=== PATIENT | male | born 1945 | race Caucasian/White ===

== ENCOUNTER 2018-07-14 20:16 | Inpatient (IN) | payer MEDICAID, MEDICARE ==
[~2018-07-14] VITALS: Ht 184.2 cm; Wt 103.4 kg
--- NOTE | 2018-07-14 20:59 | ERD ---
ER Documentation Chief Complaint Chief Complaint BIB [id number],from office,syncopal episode,called in w/ ST elevation on EKG HPI 73-year-old male history of diabetes and ischemic cardiomyopathy with EF of 20- 25% status post AICD presents to the ED via rescue ambulance after syncopal episode. Patient reports feeling unwell and lightheaded when leaving work with mild shortness of breath but no chest pain or palpitations. He was found on the ground after an apparent syncopal episode. Patient is somewhat confused and does not have any recollection of the events. Denies abdominal pain, nausea vomiting. No headache, visual changes, focal weakness or numbness. Denies leg pain or swelling. No URI symptoms, cough, fevers or chills. Prehospital Accu- Chek was 120 mg/dL. Prehospital EKG revealed paced rhythm with occasional PVCs. ROS All systems reviewed and are negative except as per history of present illness. Medications Home Meds Active Scripts Clotrimazole* (Lotrimin*) 1%-30 Gm Cream..g., 1 APPLIC TOP BID for 14 Days, #1 TUB 1 Refill Prov:THU CAMARA 07/15/18 Reported Medications Clopidogrel Bisulfate (Clopidogrel) 75 Mg Tablet, 75 MG PO DAILY for 90 Days, #90 07/15/18 Ergocalciferol (Vitamin D2) (VITAMIN D2) 50,000 Unit Capsule, 42955 UNIT PO QSAT 07/15/18 Rosuvastatin Calcium (Rosuvastatin Calcium) 20 Mg Tablet, 20 MG PO DAILY take 1 tablet daily 07/15/18 Valsartan (Valsartan) 80 Mg Tablet, 80 MG PO DAILY for 90 Days, #90 07/15/18 Fenofibrate, Micronized* (Fenofibrate*) 160 Mg Tablet, 160 MG PO DAILY for 90 Days, #90 07/15/18 Glimepiride* (Glimepiride*) 4 Mg Tablet, 4 MG PO DAILY 07/15/18 Carvedilol* (Carvedilol*) 25 Mg Tablet, 25 MG PO BID for 90 Days, #180 07/15/18 Allergies Allergies: Coded Allergies: No Known Allergy (Unverified , 07/14/18) PMhx/Soc No no stroke or cancer. No sudden cardiac . History of Surgery: Yes (Psoas muscle, AICD) Anesthesia Reaction: No Hx Neurological Disorder: No Hx Respiratory Disorders: No Hx Cardiac Disorders: Yes (Ischemic cardiomyopathy) Hx Psychiatric Problems: No Hx Miscellaneous Medical Probl: Yes (Diabetes, hyperlipidemia) Hx Alcohol Use: No Hx Substance Use: No Hx Tobacco Use: No FmHx No sudden cardiac or stroke Physical Exam Vitals Temperature: 99.7. Pulse: 89. Respirations: 18. Blood pressure 129/80. O2 saturation 97% on room air. Physical Exam Const: Alert, confused but in no acute distress. Head: Atraumatic Eyes: Normal Conjunctiva. Pupils equal reactive to light, extraocular movements are intact. No nystagmus. ENT: Normal External Ears, Nose and Mouth. Negative norman sign. No hemotympanum. Neck: Full range of motion. No midline bony tenderness or paraspinal muscle spasm. No meningismus. Resp: Breath sounds are equal and clear to auscultation bilaterally Cardio: Regular rate and rhythm, no murmurs Chest Wall: Cardiac rhythm device left upper chest wall. Nontender. Abd: Soft, non tender, non distended. Normal bowel sounds Skin: No petechiae or rashes Back: No midline or flank tenderness Ext: No cyanosis, or edema Neur: Awake and alert. Oriented to person but mildly confused. Has no recollection of the events and cannot remember his 's phone number. Cranial nerves II through XII are grossly intact. No pronator drift. Motor and sensory equal bilaterally. Plantar reflexes are downgoing. Psych: Mildly anxious but not depressed. Results 24 hrs Laboratory Tests Test 07/14/18 20:39 07/14/18 21:19 07/14/18 21:20 07/14/18 21:53 White Blood Count 5.9 10^3/ul Red Blood Count 5.00 10^6/ul Hemoglobin 14.5 g/dl Hematocrit 43.6 % Mean Corpuscular 87.2 fl Volume Mean Corpuscular 29.0 pg Hemoglobin Mean Corpuscular 33.3 g/dl Hemoglobin Concent Red Cell 14.6 % Distribution Width Platelet Count 218 10^3/UL Mean Platelet 9.5 fl Volume Immature 0.700 % Granulocytes % Neutrophils % 68.1 % Lymphocytes % 15.0 % Monocytes % 13.6 % Eosinophils % 1.7 % Basophils % 0.9 % Nucleated Red Blood 0.0 /100WBC Cells % Immature 0.040 10^3/ul Granulocytes # Neutrophils # 4.0 10^3/ul Lymphocytes # 0.9 10^3/ul Monocytes # 0.8 10^3/ul Eosinophils # 0.1 10^3/ul Basophils # 0.1 10^3/ul Nucleated Red Blood 0.0 10^3/ul Cells # Sodium Level 134 mmol/L Potassium Level 4.5 mmol/L Chloride Level 103 mmol/L Carbon Dioxide 19 mmol/L Level Anion Gap 12 Blood Urea Nitrogen 28 mg/dl Creatinine 1.02 mg/dl Est Glomerular mL/min Filtrat Rate mL/min Glucose Level 101 mg/dl Calcium Level 9.3 mg/dl Total Bilirubin 0.4 mg/dl Direct Bilirubin 0.00 mg/dl Indirect Bilirubin 0.4 mg/dl Aspartate Amino 34 IU/L Transf (AST/SGOT) Alanine 16 IU/L Aminotransferase (A LT/SGPT) Alkaline 71 IU/L Phosphatase Troponin I < 0.012 ng/ml Total Protein 7.4 g/dl Albumin 4.0 g/dl Globulin 3.40 g/dl Albumin/Globulin 1.17 Ratio Prothrombin Time 13.3 Sec Prothrombin Time 1.0 Ratio INR International 1.00 Normalized Ratio Activated 27.9 Sec Partial Thromboplas t Time D-Dimer 761.62 ng/ml D-Dimer Comment Magnesium Level 1.8 mg/dl Bedside Glucose 91 mg/dL Procedures/MDM DOCUMENTS REVIEWED: ED nurse, no prior records LAB INTERPRETATION: CBC: No anemia, leukocytosis or thrombocytopenia. Ch emistry: Mild hyponatremia and elevated BUN with normal creatinine. No electrolyte abnormalities or hypoglycemia. Troponin is negative. EKG: Time: 2018. Paced rhythm. Ventricular rate 90. Occasional PVCs. No acute ST segment elevation or depression. No Sgarbossa criteria for ischemia. My Interpretation IMAGING: Chest AP portable. The cardiac silhouette is normal. The costophrenic angles are clear. No effusion or infiltrates. Cardiac rhythm device with wires intact. No mediastinal widening. My interpretation. PROCEDURE: CT Brain without contrast. CLINICAL INDICATION: Syncope TECHNIQUE: A CT of the brain was performed on a multidetector CT scanner utilizing axial imaging from the skull base through the vertex without IV contrast. Multiplanar reformatted images were made. Images were reviewed on a PACS workstation. The CTDIvol is 39 mGy and the DLP is 634 mGycm. DICOM images are available. One or more of the following dose reduction techniques were utilized: 1.) Automated exposure control 2.) Adjustment of the mA +/- kV according to patient's size 3.) Use of iterative reconstruction technique. COMPARISON: None FINDINGS: There is moderate to severe diffuse cerebral volume loss with sulcal and ventricular dilatation. No discrete extra-axial fluid collection or masses present. Ventricles are in the midline and of normal configuration. There is periventricular and subcortical white matter disease in both cerebral hemispheres. No associated mass effect is present. There is preservation of normal [place]-white differentiation. Noted is opacification of the left frontal sinus and left ethmoid air cells with fluid and mucoperiosteal thickening in the left maxillary sinus. There is fluid in the right mastoid air cells. IMPRESSION: Atrophy. White matter disease compatible with chronic small vessel ischemia. No intracranial hemorrhage, mass or evidence of acute transcortical infarct. Sinusitis as above. .Iván Tidwell MD, MD Date Time Electronically viewed and signed by .Iván Tidwell MD, MD on 07/14/2018 21:04 MEDICAL DECISION MAKIN-year-old male history of diabetes and ischemic cardiomyopathy with EF of 20-25% status post AICD presents to the ED via rescue ambulance after syncopal episode. No chest pain, ischemic EKG changes, elevated troponin or signs of acute coronary syndrome. The patient does not recall receiving a shock from his AICD a dysrhythmia is not ruled out. Possible malfunction of cardiac rhythm device which now appears to be functioning normally and interrogation is pending. No focal neurologic deficit, signs of CVA or TIA. No obvious head injury but patient is on clopidogrel and a CT of the brain is performed to evaluate for subdural/epidural hematoma, intracranial hemorrhage, mass and ischemia is remarkable for moderately severe volume loss. Mild hyponatremia and elevated BUN to creatinine ratio consistent with dehydration but no electrolyte abnormalities or hypoglycemia. All of the age- adjusted d-dimer is mildly elevated patient is at low risk for pulmonary embolism/DVT and decision regarding CT pulmonary angiogram will be deferred to the admitting physician. Vasovagal syncope is also considered. Patient status post syncopal episode with multiple risk factors for serious outcome and ongoing mild confusion will require admission for further evaluation and management. CALLS/CONSULTS: Time: 22:30, Dr. Ramires. PMD. [phone]. Recommends admission. CALLS/CONSULTS: Time: 22:40, [facility]. Tech to interrogate AICD PATIENT CARE TRANSITIONED: Time: 23:20, Dr. Ochoa. Counseled patient regarding diagnosis, diagnostic results and plan for admission. Departure Diagnosis: Primary Impression: Syncope Syncope type: unspecified Qualified Codes: R55 - Syncope and collapse Additional Impressions: Ischemic cardiomyopathy AICD (automatic cardioverter/defibrillator) present Diabetes mellitus Diabetes mellitus type: type 2 Diabetes mellitus professional model insulin use: unspecified professional model insulin use status Diabetes mellitus complication status: with unspecified complications Qualified Codes: E11.8 - Type 2 diabetes mellitus with unspecified complications Essential hypertension Hyperlipidemia Hyperlipidemia type: unspecified Qualified Codes: E78.5 - Hyperlipidemia, unspecified Condition: Serious EDWIN WHITLEY MD Jul 14, 2018 20:59
[2018-07-14] MEDS ORDERED: ACETAMINOPHEN 325 MG TAB PO PRN (23:30)
[2018-07-14] MEDS ORDERED: ONDANSETRON 4 MG INJ IV PRN (23:30)
[2018-07-15] VITALS (10 sets, daily range): BP systolic 134–160; BP diastolic 56–77; PULSE 69–81; RESP 16–19; Ht 184.2 cm; Wt 103.4 kg
[2018-07-15] MEDS ORDERED: GLIM4TAB PO (00:01)
[2018-07-15] MEDS ORDERED: FENO160T13 PO (00:01)
[2018-07-15] MEDS ORDERED: VALS80TA30 PO (00:01)
[2018-07-15] MEDS ORDERED: CARV25TA79 PO (00:01)
[2018-07-15] MEDS ORDERED: ROSU20TA30 PO (00:20)
[2018-07-15] MEDS ORDERED: ERGO500013 PO (00:20)
[2018-07-15] MEDS ORDERED: CLOP75TA28 PO (00:20)
[2018-07-15] MEDS ORDERED: NITROGLYCERIN (SL) 0.4 MG TAB SL PRN (02:30)
[2018-07-15] MEDS ORDERED: ALBUTEROL/IPRATROPIUM (NEB) 3 ML AMP HHN PRN (02:30)
[2018-07-15] MEDS ORDERED: ONDANSETRON 4 MG INJ IV PRN (02:30)
[2018-07-15] MEDS ORDERED: NACL 0.9% 3 ML SYG IV SCH (02:30)
[2018-07-15] MEDS ORDERED: HYDROCODONE/APAP (5/325) TAB PO PRN (02:30)
[2018-07-15] MEDS ORDERED: ACETAMINOPHEN 325 MG TAB PO PRN (02:30)
[2018-07-15] MEDS ORDERED: DEXTROSE 50% 50 ML SYRINGE IV PRN ×2 (03:00)
[2018-07-15] MEDS ORDERED: GLUCOSE GEL 15 GRAM TUBE PO PRN ×2 (03:00)
[2018-07-15] MEDS ORDERED: GLUCAGON 1 MG INJ IM PRN (03:00)
[2018-07-15] MEDS ORDERED: GLUCOSE GEL 15 GRAM TUBE BUCCAL PRN (03:00)
--- NOTE | 2018-07-15 05:40 | HP ---
Date/Time of Note Date/Time of Note DATE: 07/15/18 TIME: 05:36 Assessment/Plan VTE Prophylaxis Pharmacological prophylaxis: heparin Lines/Catheters Urinary Cath still in place: No Assessment/Plan Assessment/Plan 1. Syncope -Telemetry monitoring -Orthostatics -Trend troponin -CT head negative for acute findings. Obtain 2D echo and carotid Doppler u ltrasound -Cardiology consult -?AICD interrogation 2. History of ischemic cardiomyopathy with EF of 20%: Status post AICD -Cardiology consult. AICD probably needs to be interrogated -Continue home meds 3. Hypertension: BP is in acceptable range 4. Diabetes: Insulin while in-house 5. Metabolic acidosis: Monitor for now 6. Dyslipidemia: Continue statin 7. History of right psoas muscle infection, status post extensive surgery: Patient uses a cane to ambulate Result Diagram: 07/14/18203807/14/182038 Results 24hrs Laboratory Tests Test 07/14/18 20:39 07/14/18 21:19 07/14/18 21:20 07/14/18 21:53 White Blood Count 5.9 Red Blood Count 5.00 Hemoglobin 14.5 Hematocrit 43.6 Mean Corpuscular 87.2 Volume Mean Corpuscular 29.0 Hemoglobin Mean Corpuscular 33.3 Hemoglobin Concent Red Cell 14.6 H Distribution Width Platelet Count 218 Mean Platelet Volume 9.5 Immature 0.700 H Granulocytes % Neutrophils % 68.1 Lymphocytes % 15.0 Monocytes % 13.6 H Eosinophils % 1.7 Basophils % 0.9 Nucleated Red Blood 0.0 Cells % Immature 0.040 H Granulocytes # Neutrophils # 4.0 Lymphocytes # 0.9 Monocytes # 0.8 Eosinophils # 0.1 Basophils # 0.1 Nucleated Red Blood 0.0 Cells # Sodium Level 134 L Potassium Level 4.5 Chloride Level 103 Carbon Dioxide Level 19 L Anion Gap 12 Blood Urea Nitrogen 28 H Creatinine 1.02 Est Glomerular Filtrat Rate mL/min Glucose Level 101 Calcium Level 9.3 Total Bilirubin 0.4 Direct Bilirubin 0.00 Indirect Bilirubin 0.4 Aspartate Amino 34 Transf (AST/SGOT) Alanine 16 Aminotransferase (AL T/SGPT) Alkaline Phosphatase 71 Troponin I < 0.012 Total Protein 7.4 Albumin 4.0 Globulin 3.40 H Albumin/Globulin 1.17 Ratio Prothrombin Time 13.3 Prothrombin Time 1.0 Ratio INR International 1.00 Normalized Ratio Activated 27.9 Partial Thromboplast Time D-Dimer 761.62 H D-Dimer Comment Magnesium Level 1.8 Bedside Glucose 91 Test 07/15/18 02:43 07/15/18 03:10 Creatine Kinase 77 Creatine Kinase 1.3 Index Creatinine Kinase MB 1.03 (Mass) Troponin I < 0.012 Bedside Glucose 112 HPI/ROS Admit Date/Time Admit Date/Time Jul 14, 2018 at 23:05 Hx of Present Illness This is a 81-year-old male with a history of hypertension, diabetes, ischemic c ardiomyopathy with EF of 20% status post AICD, psoas muscle surgery. Patient presented to ER for dizziness and possible loss of consciousness. 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 He was walking when he felt dizzy and his body somehow was shaking. He fell to the ground, but he does not think he lost consciousness even though he is not sure. Denied chest pain, shortness of breath or palpitations. Patient has AICD, but denied his AICD ever firing. It was last replaced in 2009. He said [facility] gave him on AICD monitoring device which he uses on a daily basis. He said he did not notice any arrhythmia. 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 He said for 1 year after surgery he was lying face down. Patient now uses a cane to ambulate. When he presented to ER, vitals were stable. First troponin is negative. EKG without ST elevation or depression. PMH/Family/Social Past Medical History Medical History: other (See HPI) Medications Current Medications Ondansetron HCl (Zofran Inj) 4 mg ER BRIDGE PRN IV NAUSEA/VOMITING; Start 07/14/18 at 23:30; Stop 07/15/18 at 23:29 Acetaminophen (Tylenol Tab) 650 mg ER BRIDGE PRN PO .MILD PAIN 1-3 OR TEMP; Start 07/14/18 at 23:30; Stop 07/15/18 at 23:29 IV Flush (NS 3 ml) 3 ml PER PROTOCOL IV ; Start 07/15/18 at 02:30 Ondansetron HCl (Zofran Inj) 4 mg Q6H PRN IV NAUSEA/VOMITING; Start 07/15/18 at 02:30 Nitroglycerin (Nitroglycerin (Sl Tab) 0.4 Mg) 1 tab Q5M PRN SL .CHEST PAIN; Start 07/15/18 at 02:30 Acetaminophen (Tylenol Tab) 650 mg Q6H PRN PO .PAIN 1-3 OR TEMP; Start 07/15/18 at 02:30 Acetaminophen/ Hydrocodone Bitart (Seagraves (5/325)) 1 tab Q6H PRN PO .PAIN 4-6; Start 07/15/18 at 02:30 Albuterol/ Ipratropium (Duoneb) 3 ml Q2H RESP THERAPY PRN HHN SHORTNESS OF BR EATH Last administered on 07/15/18at 04:45; Admin Dose 3 ML; Start 07/15/18 at 02:30 Carvedilol (Coreg) 25 mg BID PO ; Start 07/15/18 at 09:00 Clopidogrel Bisulfate (plaVIX) 75 mg DAILY PO ; Start 07/15/18 at 09:00 Fenofibrate (Tricor) 145 mg DAILY PO ; Start 07/15/18 at 09:00 Atorvastatin Calcium (Lipitor) 80 mg HS PO ; Start 07/15/18 at 21:00 Losartan Potassium (Cozaar) 50 mg DAILY PO ; Start 07/15/18 at 09:00 Diagnostic Test (Pha) (Accu-Chek) 1 ea 02 XX ; Start 07/16/18 at 02:00 Insulin Glargine (Lantus) 12 units DAILY@2000 SC ; Start 07/15/18 at 20:00 Insulin Aspart (Novolog Insulin Pen) NOVOLOG *MILD* ALGORITHM WITH MEALS BEDTIME SC ; Start 07/15/18 at 07:55 Miscellaneous Information 1 ea NOTE XX ; Start 07/15/18 at 03:00 Glucose (Glutose) 15 gm Q15M PRN PO DECREASED GLUCOSE; Start 07/15/18 at 03:00 Glucose (Glutose) 22.5 gm Q15M PRN PO DECREASED GLUCOSE; Start 07/15/18 at 03:00 Dextrose (D50w Syringe) 25 ml Q15M PRN IV DECREASED GLUCOSE; Start 07/15/18 at 03:00 Dextrose (D50w Syringe) 50 ml Q15M PRN IV DECREASED GLUCOSE; Start 07/15/18 at 03:00 Glucagon (Glucagen) 1 mg Q15M PRN IM DECREASED GLUCOSE; Start 07/15/18 at 03:00 Glucose (Glutose) 15 gm Q15M PRN BUCCAL DECREASED GLUCOSE; Start 07/15/18 at 03:00 Coded Allergies: No Known Allergy (Unverified , 07/14/18) Past Surgical History Past Surgical Hx: other (See HPI) Family History Significant Family History: no pertinent family hx Social History Alcohol Use: none Smoking Status: Never smoker Drug Use: none Exam/Review of Systems Vital Signs Vitals Vital Signs Date Temp Pulse Resp B/P (MAP) Pulse Ox O2 O2 Flow FiO2 Time Delivery Rate 07/15/18 95 21 04:45 07/15/18 75 04:00 07/15/18 98.8 19 147/71 03:58 (96) 07/15/18 Room Air 00:20 Exam Constitutional: alert, oriented, well developed Head: normocephalic, atraumatic Eyes: EOMI, PERRL Respiratory: clear to auscultation, normal air movement Cardiovascular: regular rate and rhythm Gastrointestinal: soft, non-tender Extremities: normal pulses BRODIE CHATMAN MD Jul 15, 2018 05:40
[2018-07-15] MEDS: INSULIN ASPART [NOVOLOG] 3 ML PEN SC SCH ×3 (07:52→17:55)
[2018-07-15] MEDS ORDERED: FENOFIBRATE 145 MG TAB PO SCH (09:00)
[2018-07-15] MEDS ORDERED: LOSARTAN 50 MG TAB PO SCH ×3 (09:00→21:00)
[2018-07-15] MEDS ORDERED: CLOPIDOGREL 75 MG TAB PO SCH (09:00)
[2018-07-15] MEDS ORDERED: CLOTRIMAZOLE 1% 30 GM CR TOP SCH (12:30)
--- NOTE | 2018-07-15 14:12 | DS ---
Date/Time of Note Date/Time of Note DATE: 07/15/18 TIME: 14:07 Discharge Summary Admission/Discharge Info Admit Date/Time Jul 14, 2018 at 23:05 Discharge Date/Time Patient Condition: Stable Consults Cardiology: William Martinez MD . Procedures See hospital course . Hospital Course 73-year-old male who tells me that he suffered a misstep and had a near fall, because his friend who was standing next to him helped him to the ground because he could not catch his footing. He is however very adamant that he did not pass out. His friend insisted he come to the emergency room. He has a history of severe cardiomyopathy and is status post AICD, and for that reason he was admitted for a syncopal workup. Patient continues to feel well, orthostatic vitals have been negative, CAT scan of the brain carotid Dopplers and a chest x- ray have been unremarkable. The patient is requesting to be discharged home. At this time we are pending AICD interrogation and a 2D echo evaluation, if these are unremarkable and the patient is cleared by cardiology, he will be discharged in stable condition. . Home Meds Reported Medications Clopidogrel Bisulfate (Clopidogrel) 75 Mg Tablet, 75 MG PO DAILY for 90 Days, #90 07/15/18 Ergocalciferol (Vitamin D2) (VITAMIN D2) 50,000 Unit Capsule, 60169 UNIT PO QSAT 07/15/18 Rosuvastatin Calcium (Rosuvastatin Calcium) 20 Mg Tablet, 20 MG PO DAILY take 1 tablet daily 07/15/18 Valsartan (Valsartan) 80 Mg Tablet, 80 MG PO DAILY for 90 Days, #90 07/15/18 Fenofibrate, Micronized* (Fenofibrate*) 160 Mg Tablet, 160 MG PO DAILY for 90 Days, #90 07/15/18 Glimepiride* (Glimepiride*) 4 Mg Tablet, 4 MG PO DAILY 07/15/18 Carvedilol* (Carvedilol*) 25 Mg Tablet, 25 MG PO BID for 90 Days, #180 07/15/18 Follow-up Plan Patient is to follow-up with his primary care doctor within the next 1-2 weeks, he is also encouraged to call his primary care package winder Dr. Iván Boyd and set up follow-up appointment with him. Patient is also going to be referred to cardiac rehab. . Primary Care Provider Not On Staff Doctor Time spent on discharge: > 30 minutes Pending Labs Laboratory Tests Test 07/14/18 20:39 07/14/18 21:19 07/14/18 21:20 07/14/18 21:53 White Blood 5.9 Count 10^3/ul (4.8-10 .8) Red Blood 5.00 Count 10^6/ul (4.70-6 .10) Hemoglobin 14.5 g/dl (14.0-18.0 ) Hematocrit 43.6 % (42.0-52.0) Mean 87.2 Corpuscular fl (82.0-101.0) Volume Mean 29.0 Corpuscular pg (29.0-33.0) Hemoglobin Mean 33.3 Corpuscular g/dl (32.0-37.0 Hemoglobin Conc ) ent Red Cell 14.6 Distribution % (11.5-14.5) Width Platelet Count 218 10^3/UL (140-41 5) Mean Platelet 9.5 Volume fl (7.4-10.4) Immature 0.700 Granulocytes % % (0.001-0.429) Neutrophils % 68.1 % (39.0-77.0) Lymphocytes % 15.0 % (15.0-51.0) Monocytes % 13.6 % (0.0-11.0) Eosinophils % 1.7 % (0.0-7.0) Basophils % 0.9 % (0.0-2.0) Nucleated Red 0.0 Blood Cells % /100WBC (0.0-0. 0) Immature 0.040 Granulocytes # 10^3/ul (0.0-0. 031) Neutrophils # 4.0 10^3/ul (1.6-7. 5) Lymphocytes # 0.9 10^3/ul (0.8-2. 9) Monocytes # 0.8 10^3/ul (0.3-0. 9) Eosinophils # 0.1 10^3/ul (0.0-0. 5) Basophils # 0.1 10^3/ul (0.0-0. 1) Nucleated Red 0.0 Blood Cells # 10^3/ul (0.0-0. 0) Sodium Level 134 mmol/L (135-144 ) Potassium 4.5 Level mmol/L (3.5-5.1 ) Chloride Level 103 mmol/L (97-110) Carbon Dioxide 19 Level mmol/L (21-31) Anion Gap 12 (5-13) Blood Urea 28 mg/dl (7-20) Nitrogen Creatinine 1.02 mg/dl (0.61-1.2 4) Est Glomerular mL/min (>60) Filtrat Rate mL/min Glucose Level 101 mg/dl (70-220) Calcium Level 9.3 mg/dl (8.4-10.2 ) Total 0.4 Bilirubin mg/dl (0.2-1.3) Direct 0.00 Bilirubin mg/dl (0.00-0.2 0) Indirect 0.4 Bilirubin mg/dl (0-1.1) Aspartate Amino 34 IU/L (15-46) Transf (AST/SGO T) Alanine 16 IU/L (13-69) Aminotransferas e (ALT/SGPT) Alkaline 71 Phosphatase IU/L (42-121) Troponin I < 0.012 ng/ml (0.000-0. 120) Total Protein 7.4 g/dl (6.1-8.1) Albumin 4.0 g/dl (3.3-4.9) Globulin 3.40 g/dl (1.3-3.2) Albumin/Globuli 1.17 n Ratio Prothrombin 13.3 Time Sec (11.9-14.9 ) Prothrombin 1.0 Time Ratio INR 1.00 International Normalized Rati o Activated 27.9 Partial Thrombo Sec (23.0-35.0 plast Time ) D-Dimer 761.62 ng/ml (<460) D-Dimer Comment Magnesium 1.8 Level mg/dl (1.7-2.5 ) Bedside 91 Glucose mg/dL (70-220) Test 07/15/18 02:43 07/15/18 03:10 07/15/18 06:32 07/15/18 06:35 Creatine 77 Kinase IU/L (23-200) Creatine Kinase 1.3 Index Creatinine 1.03 Kinase MB ng/ml (0.0-2.4) (Mass) Troponin I < 0.012 ng/ml (0.000-0. 120) Bedside 112 Glucose mg/dL (70-220) White Blood 4.6 Count 10^3/ul (4.8-1 0.8) Red Blood 4.88 Count 10^6/ul (4.70- 6.10) Hemoglobin 14.0 g/dl (14.0-18. 0) Hematocrit 42.2 % (42.0-52.0) Mean 86.5 Corpuscular fl (82.0-101.0 Volume ) Mean 28.7 Corpuscular pg (29.0-33.0) Hemoglobin Mean 33.2 Corpuscular g/dl (32.0-37. Hemoglobin Conc 0) ent Red Cell 14.9 Distribution % (11.5-14.5) Width Platelet Count 194 10^3/UL (140-4 15) Mean Platelet 9.4 Volume fl (7.4-10.4) Immature 1.100 Granulocytes % % (0.001-0.429 ) Neutrophils % 62.6 % (39.0-77.0) Lymphocytes % 17.5 % (15.0-51.0) Monocytes % 15.8 % (0.0-11.0) Eosinophils % 2.4 % (0.0-7.0) Basophils % 0.6 % (0.0-2.0) Nucleated Red 0.0 Blood Cells % /100WBC (0.0-0 .0) Immature 0.050 Granulocytes # 10^3/ul (0.0-0 .031) Neutrophils # 2.9 10^3/ul (1.6-7 .5) Lymphocytes # 0.8 10^3/ul (0.8-2 .9) Monocytes # 0.7 10^3/ul (0.3-0 .9) Eosinophils # 0.1 10^3/ul (0.0-0 .5) Basophils # 0.0 10^3/ul (0.0-0 .1) Nucleated Red 0.0 Blood Cells # 10^3/ul (0.0-0 .0) Hemoglobin A1c 6.3 % (0-5.9) Sodium Level 137 mmol/L (135-14 4) Potassium 3.9 Level mmol/L (3.5-5. 1) Chloride Level 103 mmol/L (97-110 ) Carbon Dioxide 23 Level mmol/L (21-31) Anion Gap 11 (5-13) Blood Urea 21 Nitrogen mg/dl (7-20) Creatinine 0.83 mg/dl (0.61-1. 24) Est Glomerular mL/min (>60) Filtrat Rate mL/min Glucose Level 94 mg/dl (70-220) Calcium Level 8.9 mg/dl (8.4-10. 2) Magnesium 1.8 Level mg/dl (1.7-2.5 ) Total 0.4 Bilirubin mg/dl (0.2-1.3 ) Direct 0.00 Bilirubin mg/dl (0.00-0. 20) Indirect 0.4 Bilirubin mg/dl (0-1.1) Aspartate Amino 26 Transf (AST/SGO IU/L (15-46) T) Alanine 31 Aminotransferas IU/L (13-69) e (ALT/SGPT) Alkaline 66 Phosphatase IU/L (42-121) Total Protein 6.8 g/dl (6.1-8.1) Albumin 3.6 g/dl (3.3-4.9) Globulin 3.20 g/dl (1.3-3.2) Albumin/Globuli 1.12 n Ratio Triglycerides 93 Level mg/dl (0-149) Cholesterol 156 Level mg/dl (100-200 ) LDL 98 mg/dl Cholesterol, Calculated HDL 39 Cholesterol mg/dl (31-75) Cholesterol/HDL 4.0 RATIO Ratio Thyroid 3.110 Stimulating MIU/L (0.465-4 Hormone (TSH) .680) Test 07/15/18 07:49 07/15/18 08:47 07/15/18 11:25 Bedside 91 155 Glucose mg/dL (70-220) mg/dL (70-220) Creatine 80 Kinase IU/L (23-200) Creatine Kinase 1.0 Index Creatinine 0.80 Kinase MB ng/ml (0.0-2.4 (Mass) ) Troponin I 0.014 ng/ml (0.000-0 .120) THU CAMARA Jul 15, 2018 14:12
[2018-07-15] MEDS ORDERED: CLOT30CR35 TOP (14:14)
--- NOTE | 2018-07-15 18:53 | RADRPT ---
Echocardiogram Report Patient Name: KEVIN JUNGPatient ID: [id number] : 1945 (73y 5m)Study Date: 07/15/2018 7:43:36 AM Gender: MAccession #: [id number] Tech: Katey Scruggs [facility] Location: 8 Ref.Physician: BRODIE CHATMAN Height(Cm): BSA: Weight(Kg): Quality: AdequateAccount #: Procedures: Echocardiographic Report: Transthoracic echocardiogram with complete 2D, M-Mode, and doppler examination. Indications: Syncope. Measurements: 2D/M Mode Doppler Measurement Value Normal Range Measurement Value Normal Range LVIDd 2D 6.2 [ 4.2 - 5.8 ] cm AV Peak Neil 1.5 [ 100.0 - 170.0 ] cm/sec LVIDs 2D 6.0 [ 2.5 - 4.0 ] cm AV Peak PG 9.0 [ 2.0 - 9.0 ] mmHg LVPWd 2D 1.1 [ 0.6 - 1.0 ] cm LVOT Peak Neil 0.9 [ 70.0 - 110.0 ] cm/sec IVSd 2D 1.0 [ 0.6 - 1.0 ] cm LVOT Peak PG 3.0 [ 2.0 - 6.0 ] mmHg AoR Diam 2D 3.2 [ 2.6 - 3.4 ] cm MV E Peak Neil 0.7 [ 60.0 - 130.0 ] cm/sec EDV 2D 193.0 [ 62.0 - 150.0 ] ml MV A Peak Neil 1.0 [ 100.0 - 120.0 ] cm/sec ESV 2D 180.0 [ 21.0 - 61.0 ] ml MV E/A 0.7 [ 0.8 - 1.5 ] ratio EF 2D 6.7 [ 52.0 - 72.0 ] percent MV Decel Time 204 [ 104 - 258 ] msec LA Dimen 2D 4.0 [ 3.0 - 4.0 ] cm Lat E` Neil 0.0 [ 10.0 - 15.0 ] cm/sec Lateral E/E` 20.0 [ 1.0 - 2.0 ] ratio MV E/A 0.7 [ 0.8 - 1.5 ] ratio TR Peak Neil 2.2 [ 100.0 - 280.0 ] cm/sec TR Peak PG 19.0 mmHg RVSP 27.0 [ 10.0 - 36.0 ] mmHg RA Pressure 8.0 mmHg Findings: Left Ventricle: Mild concentric left ventricular hypertrophy. Mild enlargement of left ventricle cavity. Severe global left ventricular systolic dysfunction. Ejection fraction is visually estimated at 25 %. Tissue Doppler/Mitral Doppler indices are consistent with impaired relaxation (Stage I diastolic dysfunction). Right Ventricle: Normal right ventricular size. Normal right ventricular systolic function. Linear artifact in right ventricle suggestive of catheter, pacer lead, or ICD lead. Left Atrium: The left atrium is normal in size. Right Atrium: The right atrium is normal in size. Mitral Valve: Normal appearance of the mitral valve. Mild mitral annular calcification. Trace mitral regurgitation. Aortic Valve: No significant aortic stenosis or insufficiency. Aortic cusps appear mildly calcified. Tricuspid Valve: Normal appearance of the tricuspid valve. Estimated peak PA systolic pressure 27 mmHg. There is trace tricuspid regurgitation. Pulmonic Valve: Normal pulmonic valve appearance. Pericardium: Normal pericardium with no significant pericardial effusion. Aorta: Normal aortic root. IVC: Dilated IVC with respiratory collapse consistent with elevated right atrial pressure. Conclusions: Mild concentric left ventricular hypertrophy. Mild enlargement of left ventricle cavity. Severe global left ventricular systolic dysfunction. Ejection fraction is visually estimated at 25 %. Tissue Doppler/Mitral Doppler indices are consistent with impaired relaxation (Stage I diastolic dysfunction). Normal appearance of the mitral valve. Mild mitral annular calcification. Trace mitral regurgitation. Normal appearance of the tricuspid valve. Estimated peak PA systolic pressure 27 mmHg. There is trace tricuspid regurgitation. Electronically Signed By: William Martinez 2018-07-15 18:53:22 PST
[2018-07-15] MEDS ORDERED: INSULIN GLARGINE [LANTus] (100 UNITS/ML) SYG SC SCH (20:00)
[2018-07-15] MEDS ORDERED: ATORVASTATIN 80 MG TAB PO SCH (21:00)
--- NOTE | 2018-07-15 21:07 | CONS ---
DATE OF ADMISSION: 07/14/2018 DATE OF CONSULTATION: 07/15/2018 REASON FOR CONSULTATION: Syncope, rule out cardiac etiology, rule out cardiac arrhythmia. REQUESTING PHYSICIAN: Dr. Camara from the hospitalist service. HISTORY OF PRESENT ILLNESS: Mr. Garcia is a 73-year-old male with history of hypertension, diabete s mellitus, ischemic cardiomyopathy, last known left ventricular ejection fraction per patient 25% to 30% noted about approximately 4 minutes prior status post prior AICD [facility], who states that he wa s in a therapy group and towards the end of it began to feel dizzy and weak. Denied chest pain or sh ortness of breath and states that he fell to the ground, does not think he lost consciousness, but th e people at the session were able to help into his feet. The patient does not believe he had an AICD discharge. The patient was therefore brought to the emergency department here at [facility]. Upon arrival, temperature 98.7, blood pressure 120/80, pulse 80, respiratory rate 18, sa tting 97%. The patient's labs were notable for a white count of 5.9, hemoglobin 14.5, platelet count of 218. Sodium of 134, potassium 4.5, creatinine 1.0, BUN 28, troponin negative. LDL 98, HDL 39. INR of 1. The patient underwent a chest x-ray revealing no evidence of acute cardiopulmonary disease . A head CT revealing atrophy, white matter disease compatible with chronic small vessel ischemia an d a carotid Doppler that revealed no evidence that he has a stenosis in the bilateral internal lara ry arteries. Since admit to floor, patient has had a total of 3 negative troponins, ruling out acute infarction. The patient has been monitored on telemetry, revealing ventricular pacing and at times AV pacing. PAST MEDICAL HISTORY: As above in HPI. MEDICATIONS CURRENTLY IN HOSPITAL: 1. ____. 2. Lantus. 3. Clotrimazole. 4. Carvedilol 25 mg p.o. b.i.d. 5. Plavix 75 mg daily. 6. TriCor 145 mg daily. 7. Cozaar 50 mg daily. 8. Insulin. 9. Zofran p.r.n. 10. Tylenol p.r.n. ALLERGIES: NO KNOWN DRUG ALLERGIES. SOCIAL HISTORY: No current tobacco, ETOH or illicit drug use. FAMILY HISTORY: No history of sudden cardiac or early CAD. REVIEW OF SYSTEMS: As above in HPI. CONSTITUTIONAL: No fevers, chills. PULMONARY: No current shortness of breath. CARDIOVASCULAR: No current chest pain. GASTROINTESTINAL: No vomiting. GENITOURINARY: No hematuria. MUSCULOSKELETAL: Degenerative joint disease. PSYCHIATRIC: The patient denies depression. NEUROLOGIC: No documented history of CVA. PHYSICAL EXAMINATION VITAL SIGNS: Temperature of 97.9, blood pressure most recently 134/60, pulse 76, respiratory rate 16 , sat 93%. LABORATORY DATA: The patient's labs from today, sodium 137, potassium 3.9, creatinine 0.8, BUN of 21 . Troponin negative x3. TSH of 3.1. LDL 98, HDL 39. White blood cell count 4.6, hemoglobin 14.0 a nd platelet count of 194. IMAGING STUDIES: As above in HPI. No further imaging studies for my review at this time. ECG: As above in HPI. No further labs for my review at this time. IMPRESSION: 1. Syncope, rule out cardiac etiology. Assess for chronic arrhythmia ____ discharge. 2. History of cardiomyopathy with depressed left ventricular ejection fraction, last night 25 to 30% with ____ volume status at this time. 3. Hypertension, mildly elevated. 4. Dyslipidemia. 5. History of automatic implantable cardioverter-defibrillator, [employer], with a biventricular devic e implant initially 2010 by cards. 6. Diabetes mellitus. RECOMMENDATIONS: 1. At this time, would maintain patient on telemetry monitoring to follow rhythm and rate closely. 2. Continue the patient's baseline carvedilol and the patient's losartan which I increased to b.i.d. to improve overall systolic blood pressure and afterload reduction. 3. Contact the patient's pacemaker rep to have the patient's AICD interrogated and found to have pro per function and no significant events. The patient will likely be fine for discharge with further o utpatient followup. 4. Dyslipidemia. Continue the patient's current statin therapy and continue the patient's Plavix at this time. 5. Upon discharge, patient should follow up with his primary transportation security screener. Thank you for allowing me to take part in the care of this patient. I will continue to follow very c losely with you. Further recommendations will be made as the patient progresses through his [facility] clinical course. Dictated By: VANDANA SALMON/PASCALE Conf#: [id number] DID#: [id number] CC: BRODIE CHATMAN MD; THU CAMARA MD;*EndCC*
[2018-07-16] MEDS ORDERED: ACCU-CHEK XX SCH (02:00)
== END 2018-07-15 18:25 | disposition home health service (06) | DRG 312 ==
LOC: E/R 20:16 → TEL 23:05
PROVIDERS: ADMIT Internal Medicine; ATTEND Internal Medicine
DX: R55 Syncope and collapse (principal); E87.2 Acidosis; I25.5 Ischemic cardiomyopathy; E11.9 Type 2 diabetes mellitus without complications; E78.5 Hyperlipidemia, unspecified; L30.9 Dermatitis, unspecified; Z95.810 Presence of automatic (implantable) cardiac defibrillator
CPT/HCPCS: 36415; 70450; 71045; 80053; 80061; 82550; 82553; 82962; 83036; 83735; 84443; 84484; 85025; 85378; 85610; 85730; 93005; 93306; 93880; 94664; 97161; J1815